=== PATIENT | female | born 1950 | race Caucasian/White ===

== ENCOUNTER → 2020-08-14 | Outpatient (CLI) | payer MEDICARE ==
--- NOTE | 2020-08-18 07:16 | MM ---
Reason for exam: screening (asymptomatic). Last mammogram was performed 5 years ago. History: Patient is postmenopausal and had first child at age 33. Benign excisional biopsy, February 17, 2000. Core biopsy of the left breast. 2 core biopsies of the right breast. Took hormonal contraceptives for 13 years beginning at age 21. Physical Findings: A clinical breast exam by your physician is recommended on an annual basis and results should be correlated with mammographic findings. MG 3D Screening Mammo W/Cad Bilateral CC and MLO view(s) were taken. Prior study comparison: August 12, 2015, bilateral MG screening mammo w CAD. March 03, 2014, bilateral MG screening mammo w CAD. The breast tissue is heterogeneously dense. This may lower the sensitivity of mammography. Previous mammotome biopsy in the right and left breast. Stable asymmetries. No significant changes when compared with prior studies. ASSESSMENT: Benign, BI-RAD 2 RECOMMENDATION: Routine screening mammogram of both breasts in 1 year.
== END | disposition home or self-care (01) ==
LOC: RADMAMWWP 14:56
PROVIDERS: ATTEND Family Medicine
DX: Z12.31 Encounter for screening mammogram for malignant neoplasm of breast (principal)
CPT/HCPCS: 77063; 77067

== ENCOUNTER → 2023-02-16 | Outpatient (CLI) | payer MEDICARE, OTHER ==
--- NOTE | 2023-02-18 13:47 | MR ---
EXAMINATION TYPE: MR knee LT wo con DATE OF EXAM: 02/16/2023 COMPARISON: None HISTORY: Lt knee pain TECHNIQUE: Multiplanar, multisequence imaging of the left knee is performed without IV contrast. FINDINGS: There is diffuse abnormal signal intensity in the lateral femoral condyle. Small nondisplaced fractur e is not excluded. There is mild abnormal signal and there is a grade 1-2 strain of the medial collat eral ligament. The cruciate ligaments and lateral collateral ligament. There is no significant cartilage thinning. There is small subchondral changes in the patella. Minima l degenerative change. There is a small joint effusion IMPRESSION: 1. Bone contusion with possible microfracture/nondisplaced fracture of the lateral femoral condyle as described above. 2. Grade 1-2 strain of the medial collateral ligament. 3. No meniscal injury. 4. Small joint effusion..
== END | disposition home or self-care (01) ==
LOC: RADMRIMAIN 12:55
PROVIDERS: ATTEND Orthopaedic Surgery
DX: S83.412A Sprain of medial collateral ligament of left knee, initial encounter (principal); S80.02XA Contusion of left knee, initial encounter; M25.462 Effusion, left knee

== ENCOUNTER → 2023-03-14 | Outpatient (CLI) | payer MEDICARE, OTHER ==
[2023-03-14 11:09] LABS: Basophils % (A) 1.2 %; HCT 40.1 % (37.2-46.3); Lymphocytes % (A) 53.6 %; MCH 31.6 pg (27.0-32.0); MCHC 32.4 d/dL (32.0-37.0); MCV 97.3 FL (80.0-97.0); Monocytes % (A) 8.8 %; NRBC Per 100 WBC 0 X 10*3/uL (0.00-0.01); Neutrophils # (A) 1.44 X 10*3/uL (1.80-7.70); Neutrophils % (A) 33.2 %; Platelet Count 254 X 10*3/uL (140-440); RBC 4.12 X 10*6/uL (4.10-5.20); RDW 12.9 % (11.5-14.5); WBC 4.33 X 10*3/uL (4.50-10.00)
[2023-03-14 11:10] LABS: Basophils # (A) 0.05 X 10*3/uL (0.00-0.10); Eosinophils # (A) 0.13 X 10*3/uL (0.04-0.35); Lymphocytes # (A) 2.32 X 10*3/uL (0.90-5.00); Monocytes # (A) 0.38 X 10*3/uL (0.20-1.00)
[2023-03-14 11:23] LABS: Anion Gap 9.6 mmol/L (4.00-12.00); Carbon Dioxide 26.4 mmol/L (21.6-31.8); Potassium 4.7 mmol/L (3.5-5.5)
== END | disposition home or self-care (01) ==
LOC: LABPAT 07:45
PROVIDERS: ATTEND Orthopaedic Surgery
DX: Z01.812 Encounter for preprocedural laboratory examination (principal); M23.92 Unspecified internal derangement of left knee; R00.1 Bradycardia, unspecified
CPT/HCPCS: 80051; 85025; 93005

== ENCOUNTER → 2024-02-23 | Outpatient (CLI) | payer MEDICARE, OTHER ==
--- NOTE | 2024-02-23 13:41 | CA ---
Transthoracic Echo Report Name: nAnie Patel Age: 73 Gender: F : 1950 Exam Date: 02/23/2024 08:58 Exam Location: [facility] Ht (in): 61 Wt (lb): 118 Ordering Physician: Theodore Joyce DO Attending/Referring Phys: Deputy Controller Chelle Palafox RDCS Procedure CPT: Indications: R00.2 palpitations Cardiac Hx: Technical Quality: Fair Contrast 1: Total Dose (mL): Contrast 2: Total Dose (mL): MEASUREMENTS (Male / Female) Normal Values 2D ECHO LV Diastolic Diameter PLAX 4.4 cm 4.2 - 5.9 / 3.9 - 5.3 cm LV Systolic Diameter PLAX 2.7 cm IVS Diastolic Thickness 0.8 cm 0.6 - 1.0 / 0.6 - 0.9 cm LVPW Diastolic Thickness 0.9 cm 0.6 - 1.0 / 0.6 - 0.9 cm LV Relative Wall Thickness 0.4 RV Internal Dim ED PLAX 2.8 cm M-MODE Aortic Root Diameter MM 2.8 cm LA Systolic Diameter MM 4.0 cm LA Ao Ratio MM 1.5 AV Cusp Separation MM 1.8 cm DOPPLER AV Peak Velocity 99.6 cm/s AV Peak Gradient 4.0 mmHg AV Mean Velocity 69.3 cm/s AV Mean Gradient 2.1 mmHg AV Velocity Time Integral 21.6 cm LVOT Peak Velocity 75.7 cm/s LVOT Peak Gradient 2.3 mmHg LVOT Velocity Time Integral 18.8 cm MV Area PHT 3.7 cm??? Mitral E Point Velocity 59.4 cm/s Mitral A Point Velocity 76.4 cm/s Mitral E to A Ratio 0.8 MV Deceleration Time 204.2 ms MV E' Velocity 4.8 cm/s Mitral E to MV E' Ratio 12.5 TR Peak Velocity 188.9 cm/s TR Peak Gradient 14.3 mmHg Right Ventricular Systolic Press 18.1 mmHg FINDINGS Left Ventricle Normal Left ventricular size, wall thickness, systolic function with no obvious regional wall motion abnormalities. Normal Left ventricular diastolic filling pattern. Left ventricular ejection fraction is estimated at 55-60 %. Right Ventricle Normal right ventricular size and function. Right ventricular systolic pressure within normal limits. Right Atrium Normal right atrial size. Left Atrium Normal left atrial size. Mitral Valve Structurally normal mitral valve. Mild mitral annular calcification. Mild mitral regurgitation. Centrally directed mitral regurgitation jet. Aortic Valve Trileaflet aortic valve. No aortic valve stenosis or regurgitation. Tricuspid Valve Structurally normal tricuspid valve. Mild tricuspid regurgitation. Pulmonic Valve Structurally normal pulmonic valve. Pericardium No pericardial effusion. Aorta Normal size aortic root and proximal ascending aorta. CONCLUSIONS Left ventricular ejection fraction 55-60% RVSP 18 Mild mitral regurgitation Mild tricuspid regurgitation No pericardial effusion Previewed by: Dr. Pino Carroll DO (Electronically Signed) Final Date: 23 February 2024 13:39
--- NOTE | 2024-02-23 14:12 | MM ---
Reason for Exam: Clinical finding. Last mammogram was performed 1 year(s) and 6 month(s) ago. Indicated Problems: Pain of the left side (Global) : from nipple to chest wall. Patient History: Menarche at age 14. First Full-Term at age 33. Late child-bearing (after 31). Postmenopausal. Patient has history of breast feeding. Hormonal Contraceptives for 13 years from age 21 until age 38. Core Biopsy on the Right side. Core Biopsy on the Right side. Core Biopsy on the Left side. Benign Excisional Biopsy. Risk Values: Isamar 5 year model risk: 3.6%. NCI Lifetime model risk: 9.3%. Prior Study Comparison: 04/12/2007 Bilateral Diagnostic Mammogram, [facility]. 05/04/2012 Bilateral Screening Mammogram, [facility]. 03/03/2014 Bilateral Screening Mammogram, [facility]. 08/12/2015 Bilateral Screening Mammogram, [facility]. 08/14/2020 Bilateral Screening Mammogram, [facility]. 08/18/2022 Bilateral MG 3D screening mammo w/cad, [facility]. Tissue Density: There are scattered areas of fibroglandular density. Findings: Analyzed By CAD. There are 2 microclips within the right breast and one microclip in the left breast. There is chronic bilateral nodularity. No significant change from prior exams. Overall Assessment: Benign, BI-RAD 2 Management: Screening Mammogram of both breasts in 1 year. Further clinical management of patient's left breast pain. Results were given to the patient verbally at the time of exam. Patient should continue monthly self-breast exams. A clinical breast exam by your physician is recommended on an annual basis. This exam should not preclude additional follow-up of suspicious palpable abnormalities. Note on Isamar scores and lifetime risk: 1. A Isamar score greater than 3% is considered moderate risk. If this is the case, consider specialist referral to assess eligibility for a risk reducing agent. 2. If overall lifetime risk for the development of breast cancer is 20% or higher, the patient may qualify for future screening with alternating mammogram and breast MRI. Electronically signed and approved by: Ninfa Saab M.D. Radiologist
== END | disposition home or self-care (01) ==
LOC: RADMAMWWP 07:50
PROVIDERS: ATTEND Family Medicine
DX: N64.4 Mastodynia (principal); R00.2 Palpitations; R53.83 Other fatigue; R92.323 Mammographic fibroglandular density, bilateral breasts; N63.10 Unspecified lump in the right breast, unspecified quadrant; N63.20 Unspecified lump in the left breast, unspecified quadrant; I08.1 Rheumatic disorders of both mitral and tricuspid valves; Z78.0 Asymptomatic menopausal state; Z87.898 Personal history of other specified conditions
CPT/HCPCS: 93306; 77066; G0279; 77062

== ENCOUNTER → 2024-08-26 | Outpatient (CLI) | payer MEDICARE, OTHER ==
--- NOTE | 2024-08-26 12:39 | XR ---
EXAMINATION TYPE: XR chest 2V DATE OF EXAM: 08/26/2024 12:33 PM COMPARISON: None TECHNIQUE: XR chest 2V Frontal and lateral views of the chest. CLINICAL INDICATION:Female, 74 years old with history of R05.3; FINDINGS: Lungs/Pleura: There is no evidence of pleural effusion, focal consolidation, or pneumothorax. Pulmonary vascularity: Unremarkable. Heart/mediastinum: Cardiomediastinal silhouette is unremarkable. Musculoskeletal: Multiple level degenerative disc disease changes seen throughout the spine. IMPRESSION: No acute cardiopulmonary disease/process. [facility], , 08/26/2024 12:37 PM
== END | disposition home or self-care (01) ==
LOC: RADXRMAIN 12:21
DX: R05.3 Chronic cough (principal)
CPT/HCPCS: 71046